=== PATIENT | female | born 1955 | race Caucasian/White ===

== ENCOUNTER 2023-11-13 10:27 | Observation (INO) ==
[~2023-11-13 10:27] MED LIST: Dexamethasone IV 4 MG/ML VIAL 1 ml VIAL ONE; Lidocaine 2% PF 5 ML VIAL ONE; Metoclopramide 5 MG/ML VIAL (10 mg) IV PRN; Midazolam 2 mg/2 ml VIAL 1 mg/ml 2 ml VIAL (2 mg) ONE; NS 0.45% 1000 ml BAG 1,000 ML IV SCH; Naloxone 0.4 mg VIAL 0.4 mg/ml 1 ml VIAL IV PRN; Ondansetron 4 mg VIAL 2 MG/ML 2 ml VIAL IV PRN; Ondansetron 4 mg VIAL 2 MG/ML 2 ml VIAL ONE; Propofol 10 MG/ML 20 ML BTL ONE; fentaNYL 100 mcg/2 ml 50 MCG/ML VIAL IV PRN; fentaNYL 100 mcg/2 ml 50 MCG/ML VIAL ONE
[2023-11-13] MEDS ORDERED: ceFAZolin 2 GM PREMIX 2 GM/50 ML BAG ONE (10:42)
[2023-11-13] MEDS ORDERED: Tranexamic Acid 1 GM/100ML BAG 2,000 MG/200 ML BAG IV ONE (10:44)
[2023-11-13 11:07] LABS: Rapid COVID-19 Molecular Undetected (Undetected)
[2023-11-13] MEDS ORDERED: fentaNYL 100 mcg/2 ml 50 MCG/ML VIAL ONE ×3 (12:20→14:01)
[2023-11-13] MEDS ORDERED: Midazolam 2 mg/2 ml VIAL 1 mg/ml 2 ml VIAL (2 mg) ONE (12:20)
[2023-11-13] MEDS ORDERED: ROPIVACAINE 5 MG/ML 30 ML BTL (0.5%) ONE ×2 (12:20→12:26)
[2023-11-13] MEDS ORDERED: Dexamethasone IV 4 MG/ML VIAL 1 ml VIAL ONE (12:20)
[2023-11-13] MEDS ORDERED: HYDROmorphone 0.5 MG/0.5 ML SYRINGE ONE ×2 (13:50→14:00)
[2023-11-13] MEDS ORDERED: Rocuronium 50 mg VIAL 10 mg/ml 5 ml VIAL (50 mg) ONE (14:02)
[2023-11-13] MEDS ORDERED: Ondansetron 4 mg VIAL 2 MG/ML 2 ml VIAL IV PRN (15:08)
[2023-11-13] MEDS ORDERED: Lactulose 30 ml UDC PO PRN (15:08)
[2023-11-13] MEDS ORDERED: Morphine 2 MG/ML SYRINGE IV PRN (15:08)
[2023-11-13] MEDS ORDERED: Ondansetron ODT 4 mg TAB 4 MG TAB PO PRN (15:08)
[2023-11-13] MEDS ORDERED: Magnesium Hydroxide LIQ 30 ML UDC PO PRN (15:08)
[2023-11-13] MEDS ORDERED: Levalbuterol HFA INHALER MDI ONE (15:47)
[2023-11-13] MEDS: Lactated Ringers 1000 ml BAG 1,000 ML IV SCH ×2 (17:41→18:21)
[2023-11-13] MEDS: Buffered Lidocaine 1% SYRIN 1 ml INTRADERM ONE (18:20)
[2023-11-13] MEDS: Acetaminophen IV 1 GM/100ML 1,000 MG/100 ML BAG IV ONE (18:20)
[2023-11-13] MEDS: Scopolamine 1 mg/72hr PATCH TRANSDERM ONE (18:21)
[2023-11-13] MEDS: Magnesium Hydroxide LIQ 30 ML UDC PO SCH (21:13)
[2023-11-13] MEDS: ceFAZolin 1 GM ADVAN 1 GM in NS 0.9% 50 ML 50 ML IVPB SCH (21:13)
[2023-11-14] MEDS: Benzocaine/Menthol LOZ MT PRN (00:16)
[2023-11-14 06:07] LABS: Hematocrit 34.2 % (35-45); Hemoglobin 11.5 g/dL (11.5-14.3); Mean Platelet Volume 8.6 fL (7.5-11.2); Platelet Count 221 10^3/uL (150-450)
[2023-11-14 06:44] LABS: Calcium 9.2 mg/dL (8.6-10.3); Creatinine, Serum 0.69 mg/dL (0.51-0.95); Potassium 4.4 mmol/L (3.5-5.0); eGFR CKD-EPI 95.1 (>60)
[2023-11-14] MEDS: Vitamin THERAPEUTIC TAB PO SCH (08:17)
[2023-11-14 10:27] VITALS: BP 115/57
== END 2023-11-14 14:30 | disposition home or self-care (01) ==
LOC: OR 10:27 → SSU 10:27
PROVIDERS: ADMIT Student in an Organized Health Care Education/Training Program; ATTEND Orthopaedic Surgery Adult Reconstructive Orthopaedic Surgery